=== PATIENT | female | born 1945 | race Caucasian/White ===

== ENCOUNTER 2018-11-04 11:21 | Emergency (ER) | payer OTHER ==
[2018-11-04] MEDS ORDERED: NS 500 ML IV ONE (11:41)
[2018-11-04 11:49] LABS: PLATELET COUNT 310 10^3/uL (150-400)
[2018-11-04 12:00] LABS: INR 0.99 (0.83-1.16); PROTIME(PATIENT) 12.7 SEC (12.0-15.0)
--- NOTE | 2018-11-04 12:26 | EDPHY ---
H & P Time Seen by Provider: 11/04/18 11:40 HPI/ROS: HPI Sudden-onset forgetfulness and confusion. 73-year-old female by private vehicle with her daughter. This patient has a history of multiple myeloma. She was on immunotherapy for this managed by her oncologist down in [facility] where she lives during the winter. She has a condominium here in [place] where her daughter lives. She moved back up here about a week ago. The daughter reports that about a week ago she had a very sharp increase in her confusion as well as short-term memory loss. She denies any loss of sensation or weakness in her extremities. No difficulty walking. No changes in vision. No history of fever. No no headache. She does have a history of chronic pain and was on Cymbalta for this as well as prednisone. She was taken off of this about a week ago secondary to her new onset confusion and there has been no change. She has had generalized fatigue since undergoing immunotherapy in [facility] several months ago. ROS: Constitutional: No fever, no chills. As above. Eyes: No discharge. No changes in vision. ENT: No sore throat. No nasal congestion or rhinorrhea. Respiratory: No cough. No shortness of breath. Cardiac: No chest pain, no palpitations. Gastrointestinal: No abdominal pain, no vomiting, no diarrhea. Genitourinary: No hematuria. No dysuria or increased frequency with urination. Musculoskeletal: No back pain. No neck pain. No myalgias or arthralgias. Skin: No rashes. Neurological: No headache. No focal weakness or altered sensation. As above. Past medical history: Hypothyroid, removal of melanoma, lymph node dissection of groin and left lower extremity, breast augmentation, , thyroidectomy. Social history: Nonsmoker. No alcohol. As above. Here with her daughter currently. Physical Exam: General Appearance: Alert, no distress. This patient is responding to questions appropriately and in full sentences. This patient appears well- hydrated and well-nourished. Head: Normocephalic atraumatic. Eyes: Pupils equal and round no pallor or injection. No lid edema, erythema or injection. ENT, Mouth: Mucous membranes are moist. The pharyngeal tissues are unremarkable. No edema or swelling. No asymmetry suggestive of abscess. No erythema or exudates. Respiratory: There are no retractions, lungs are clear to auscultation with good air movement bilaterally. Cardiovascular: Regular rate and rhythm. No murmur. Gastrointestinal: Abdomen is soft and nontender, no masses, bowel sounds normal. No focal tenderness at McBurney's point. No Gonsalves sign. Neurological: Motor sensory function is grossly intact. Cranial nerves are normal. Gait is normal. Patient is currently alert to person place and time. 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 Skin: Warm and dry, no rashes. Musculoskeletal: Neck is supple and nontender. Extremities are symmetrical. All joints range without pain or impingement. Psychiatric: No agitation. No depression. Database: EKG: EKG time is 11:47 a.m.; EKG shows a narrow complex normal sinus rhythm with a ventricular rate of 81. Intermittent PACs in a bigeminal pattern. The MO, QRS, QT intervals are within normal limits. There are no ST-T wave changes indicative of ischemic or injury pattern. No evidence of right heart strain. Interpreted by me. Imaging: MRI of brain without contrast: 4 mm left anterior polly enhancing lesion without evidence of edema. Likely a hemangioma/vascular malformation, less likely metastasis. Age-related changes and small incidental findings only. No evidence of acute infarct. Results were discussed with staff radiologist Dr. Sky Perdomo. Please see his report for further details. Procedures: Emergency department course: Triage vital signs reviewed and are normal. IV was placed. She was placed on a bus driver/monitor. Appropriate blood work ordered. She will be started on IV normal saline with 250 cc to 500 cc to be given over the next hour in anticipation of possible contrast enhanced imaging. Initially MRI without contrast of her brain will be obtained. She and her daughter endorse workup. 2:45 p.m., the patient was re-evaluated, she is sitting upright in the examination room. Repeat neurologic Assessment is nonfocal. Results of her emergency department workup as well as MRI were discussed with her and her daughter in detail. She feels comfortable going home with her daughter and I feel she is safe for discharge. Her MRI results as well as all reports, blood work and urinalysis results will be sent to her oncologist down in [place]. He will then make further recommendations on ongoing care. I will refer her to our neurologist here for further evaluation. This will be Dr. Jeff Landry. Her insurance is limited to care in the [facility] only. Her daughter does agree though to take her to Dr. Landry here in [place]. Follow-up was thoroughly reviewed with the 2 of them. Return to emergency department precautions thoroughly discussed. All of their questions were answered. The patient was discharged in good condition with her daughter. Differential Diagnosis: The differential diagnosis on this patient includes but is not limited to age- related dementia. Metastatic disease, CVA, encephalitis unlikely. This represents a partial list of diagnoses considered. These considerations are based on history, physical exam, past history, reassessment and diagnostic testing. Smoking Status: Never smoked Constitutional: Initial Vital Signs Temperature (C) 36.6 C 11/04/18 11:24 Heart Rate 86 11/04/18 11:24 Respiratory Rate 18 11/04/18 11:24 Blood Pressure 142/84 H 11/04/18 11:24 O2 Sat (%) 96 11/04/18 11:24 O2 Delivery Mode Room Air Allergies/Adverse Reactions: Penicillins Allergy (Verified 11/04/18 11:30) Sulfa (Sulfonamide Antibiotics) Allergy (Verified 11/04/18 11:30) Milk Containing Products Adverse Reaction (Verified 11/04/18 11:30) Home Medications: Medication Instructions Recorded Levothyroxine [Synthroid 175 mcg 175 mcg PO DAILY06 09/15/11 (RX)] Medical Decision Making - Diagnostics Imaging Results: Imaging Impressions Brain MRI 11/04/18 12:18 Impression: 1. Enhancing lesion left anterior polly demonstrates decreased signal on susceptibility weighted imaging suspicious for metastatic disease in this patient with history of melanoma versus possibility of occult vascular malformation/hemangioma. 2. Small signal voids along the anterior inferior right temporal lobe without enhancement that could be related to foci of hemosiderin or calcification. 3. Minimal nonspecific hyperintense T2/FLAIR signal abnormalities in the subcortical white matter of bilateral frontal lobes. Differential diagnosis includes microvascular ischemic disease, post-infectious/post-inflammatory sequela, atypical demyelinating disease, or migraine-related sequela. 4. Marked degenerative disk disease mid cervical spine with mild anterior subluxation of C3 on C4. If symptoms worsen, additional imaging may be necessary. Findings discussed with Monica Rocha MD at 14:24 hour, 11/04/2018. - Data Points Laboratory Results: Laboratory Results 11/04/18 11:40 11/04/18 11:40 11/04/18 11/04/18 11/04/18 13:15 11:40 11:40 WBC RBC Hgb Hct MCV MCH MCHC RDW Plt Count MPV Neut % (Auto) Lymph % (Auto) [place] % (Auto) Eos % (Auto) Baso % (Auto) Nucleat RBC Rel Count Absolute Neuts (auto) Absolute Lymphs (auto) Absolute Monos (auto) Absolute Eos (auto) Absolute Basos (auto) Absolute Nucleated RBC Immature Gran % Immature Gran # PT INR APTT Sodium 139 mEq/L mEq/L (135-145) Potassium 4.5 mEq/L mEq/L (3.5-5.2) Chloride 104 mEq/L mEq/L (97-110) Carbon Dioxide 26 mEq/l mEq/l (22-31) Anion Gap 9 mEq/L mEq/L (6-14) BUN 17 mg/dL mg/dL (7-23) Creatinine 1.0 mg/dL mg/dL (0.6-1.0) Estimated GFR 54 Glucose 89 mg/dL mg/dL (70-100) Calcium 9.7 mg/dL mg/dL (8.5-10.4) Total Bilirubin 0.7 mg/dL mg/dL (0.1-1.4) Conjugated Bilirubin 0.0 mg/dL mg/dL (0.0-0.5) Unconjugated Bilirubin 0.7 mg/dL mg/dL (0.0-1.1) AST 16 IU/L IU/L (14-46) ALT 24 IU/L IU/L (9-52) Alkaline Phosphatase 47 IU/L IU/L (38-126) Total Protein 6.8 g/dL g/dL (6.3-8.2) Albumin 3.9 g/dL g/dL (3.5-5.0) TSH 0.659 uIU/mL uIU/mL (0.465-4.680) Urine Color PALE YELLOW Urine Appearance CLEAR Urine pH 7.0 (5.0-7.5) Ur Specific Rodney 1.008 (1.002-1.030) Urine Protein NEGATIVE (NEGATIVE) Urine Ketones NEGATIVE (NEGATIVE) Urine Blood 1+ H (NEGATIVE) Urine Nitrate NEGATIVE (NEGATIVE) Urine Bilirubin NEGATIVE (NEGATIVE) Urine Urobilinogen NEGATIVE EU EU (0.2-1.0) Ur Leukocyte Esterase TRACE H (NEGATIVE) Urine RBC 1-3 /hpf /hpf (0-3) Urine WBC 3-5 /hpf H /hpf (0-3) Ur Epithelial Cells TRACE /lpf /lpf (NONE-1+) Urine Mucus 1+ /lpf /lpf (NONE-1+) Urine Glucose NEGATIVE (NEGATIVE) 11/04/18 11/04/18 11:40 11:40 WBC 8.71 10^3/uL 10^3/uL (3.80-9.50) RBC 4.41 10^6/uL 10^6/uL (4.18-5.33) Hgb 13.6 g/dL g/dL (12.6-16.3) Hct 41.9 % % (38.0-47.0) MCV 95.0 fL fL (81.5-99.8) MCH 30.8 pg pg (27.9-34.1) MCHC 32.5 g/dL g/dL (32.4-36.7) RDW 13.8 % % (11.5-15.2) Plt Count 310 10^3/uL 10^3/uL (150-400) MPV 9.5 fL fL (8.7-11.7) Neut % (Auto) 55.6 % % (39.3-74.2) Lymph % (Auto) 31.5 % % (15.0-45.0) [place] % (Auto) 9.6 % % (4.5-13.0) Eos % (Auto) 2.3 % % (0.6-7.6) Baso % (Auto) 0.8 % % (0.3-1.7) Nucleat RBC Rel Count 0.0 % % (0.0-0.2) Absolute Neuts (auto) 4.84 10^3/uL 10^3/uL (1.70-6.50) Absolute Lymphs (auto) 2.74 10^3/uL 10^3/uL (1.00-3.00) Absolute Monos (auto) 0.84 10^3/uL H 10^3/uL (0.30-0.80) Absolute Eos (auto) 0.20 10^3/uL 10^3/uL (0.03-0.40) Absolute Basos (auto) 0.07 10^3/uL 10^3/uL (0.02-0.10) Absolute Nucleated RBC 0.00 10^3/uL 10^3/uL (0-0.01) Immature Gran % 0.2 % % (0.0-1.1) Immature Gran # 0.02 10^3/uL 10^3/uL (0.00-0.10) PT 12.7 SEC SEC (12.0-15.0) INR 0.99 (0.83-1.16) APTT 33.0 SEC SEC (23.0-38.0) Sodium Potassium Chloride Carbon Dioxide Anion Gap BUN Creatinine Estimated GFR Glucose Calcium Total Bilirubin Conjugated Bilirubin Unconjugated Bilirubin AST ALT Alkaline Phosphatase Total Protein Albumin TSH Urine Color Urine Appearance Urine pH Ur Specific [place] Urine Protein Urine Ketones Urine Blood Urine Nitrate Urine Bilirubin Urine Urobilinogen Ur Leukocyte Esterase Urine RBC Urine WBC Ur Epithelial Cells Urine Mucus Urine Glucose Medications Given: Discontinued Medications Sodium Chloride (Ns) 500 mls @ 0 mls/hr IV EDNOW ONE; Wide Open PRN Reason: Protocol Stop: 11/04/18 11:42 Last Admin: 11/04/18 11:51 Dose: 500 mls Departure - Departure Disposition: Home, Routine, Self-Care Clinical Impression: Forgetfulness, History of melanoma Condition: Good Instructions: Mild Cognitive Impairment: New Diagnosis (DC) Additional Instructions: Read and follow provided instructions. Follow-up with Neurology, Dr. Jeff Landry, or 1 of his partners within the next 2-3 days for re-evaluation as discussed. They will have access to results of all your emergency department testing here today. It is also important you follow up with your oncologist in [facility]. As discussed will have all of your records and results from today's visit sent to their clinic. Return to the emergency department for worsening symptoms, headache, nausea or vomiting, loss of sensation or weakness in your extremities or other serious concerns. Referrals: Jeff Landry MD [Medical Doctor] - As per Instructions
[2018-11-04] MEDS ORDERED: GADOBUTROL 10 ML VIAL IVP ONE (13:20)
[2018-11-04 15:07] VITALS: BP 151/82
--- NOTE | 2018-11-04 15:26 | CPEKG ---
Test Reason : OPEN Blood Pressure : / mmHG Vent. Rate : 081 BPM Atrial Rate : 083 BPM P-R Int : 128 ms QRS Dur : 068 ms QT Int : 361 ms P-R-T Axes : 067 049 057 degrees QTc Int : 419 ms Sinus rhythm Supraventricular bigeminy Confirmed by Monica Rocha ([id number]) on 11/04/2018 3:25:37 PM Referred By: Monica Rocha Confirmed By:Monica Rocha
== END 2018-11-04 15:16 | disposition home or self-care (01) ==
DX: G31.84 Mild cognitive impairment of uncertain or unknown etiology (principal); C90.00 Multiple myeloma not having achieved remission; E86.9 Volume depletion, unspecified
CPT/HCPCS: 70553; 93005; 99285; A9585

== ENCOUNTER → 2018-11-21 | Outpatient (CLI) | payer OTHER | LOC: BMCIMAGING 16:38 ==